=== PATIENT | female | born 1960 | race Caucasian/White ===

== ENCOUNTER → 2024-06-05 08:29 | Outpatient (REF) | payer BC, SELFPAY | LOC: HWRAD 08:29 | PROVIDERS: ATTENDING PHYSICIAN Obstetrics & Gynecology Gynecology; FAMILY PHYSICIAN Internal Medicine | DX: M85.89 Other specified disorders of bone density and structure, multiple sites (principal); Z12.31 Encounter for screening mammogram for malignant neoplasm of breast | CPT/HCPCS: 77063; 77067; 77080 ==

== ENCOUNTER 2024-10-26 22:18 | Emergency (ER) | payer BC, SELFPAY ==
[2024-10-26 22:20] VITALS: BP 166/87
--- NOTE | 2024-10-26 23:54 | ED.GENMED ---
History of Present Illness
<Quentin Thompson MD, Resident - Last Filed: 10/27/24 00:02>
General
Chief Complaint: Skin Surface Trauma
Source: patient
Exam Limitations: none
Time Seen by Provider: 10/26/24 23:39
History of Present Illness
History of Present Illness:
This is a 63-year-old female with history of hypertension; controlled, presenting in the emergency department with complaints of laceration to right forearm that happened around 11 AM. She reports she hit her arm on something in the garage. She
noticed some bleeding which stopped after few minutes however she still wanted to get it checked and decided to visit the emergency department. Denies any fevers or chills, denies any obvious swelling.
Past History
<Quentin Thompson MD, Resident - Last Filed: 10/27/24 00:02>
Past History
ED Past Medical History: Asthma, HTN and Other (History of hemachromatosis, anxiety, depression, neck and back pain with tingling and numbness of extremities, arthritis)
ED Past Surgical History: Other (History of back surgery)
Social History
Tobacco: Non-smoker
Alcohol: None
Drug: None
Personal:
Living: with family
Employment: Employed
Review of Systems
<Quentin Thompson MD, Resident - Last Filed: 10/27/24 00:02>
Review of Systems
Allergies reviewed?: Yes
All Other Systems: ROS reviewed and negative except as documented in HPI and ROS
Phy Exam
<Quentin Thompson MD, Resident - Last Filed: 10/27/24 00:02>
General Physical Exam
General Presentation: well appearing and no apparent distress
General age: appears stated age
General Skin: warm
General Habitus: normal
General Mental: alert
General Hydration: appears well hydrated
Cardiovascular Exam
Cardiovascular Exam: regular rate/rhythm and no murmur
Pulmonary Exam
Pulmonary Exam: lungs clear and no respiratory distress
Skin Exam
Skin Exam: other (Small abrasion with minimal redness in the right forearm. No obvious swelling. No bleeding. Nontender to touch. No changes in the bridge)
Course
<Quentin Thompson MD, Resident - Last Filed: 10/27/24 00:02>
Vital Signs
Initial and Last Documented VS:
Initial Vital Signs
Temp Pulse Resp BP Pulse Ox
98.1 F 68 18 166/87 95
10/26/24 22:20 10/26/24 22:20 10/26/24 22:20 10/26/24 22:20 10/26/24 22:20
Last Documented Vital Signs
Temp Pulse Resp BP Pulse Ox
98.1 F 68 18 166/87 95
10/26/24 22:20 10/26/24 22:20 10/26/24 22:20 10/26/24 22:20 10/26/24 23:58
<James Lo, DO - Last Filed: 10/27/24 00:07>
Vital Signs
Initial and Last Documented VS:
Initial Vital Signs
Temp Pulse Resp BP Pulse Ox
98.1 F 68 18 166/87 95
10/26/24 22:20 10/26/24 22:20 10/26/24 22:20 10/26/24 22:20 10/26/24 22:20
Last Documented Vital Signs
Temp Pulse Resp BP Pulse Ox
98.1 F 68 18 166/87 95
10/26/24 22:20 10/26/24 22:20 10/26/24 22:20 10/26/24 22:20 10/26/24 23:58
<Quentin Thompson MD, Resident - Last Filed: 10/27/24 00:02>
MDM/Problems Addressed
Differential Diagnosis Includes:
Laceration due to trauma
MDM/Problems Addressed:
Physical exam showed very superficial injury. No obvious swelling or redness. Dermabond applied. Wound care instructions reviewed with the patient. Return precautions reviewed. Shared decision was made with the patient for discharge. Patient
voices understanding.
<Quentin Thompson MD, Resident - Last Filed: 10/27/24 00:02>
*Pulse Oximetry
SaO2: 95
Oxygen Mode of Delivery: Room air
Patient hypoxic: no
*Critical Care Note
Total Time (30-74mins, 75-104mins- exclusive of procedures): Not Applicable
ED Attending Note
<Quentin Thompson MD, Resident - Last Filed: 10/27/24 00:02>
-
Portions of this chart may have been created with voice recognition software.� Occasional wrong word or��sound alike� substitutions may have occurred due to the inherent limitations of voice recognition software.
<James Lo, DO - Last Filed: 10/27/24 00:07>
ED Attending Note
Patient seen and examined by attending physician: Yes
I performed a history and physical exam of patient and discussed management with resident, I reviewed resident's note and agree with documented findings and plan of care.: Yes
ED Attending Note:
I have reviewed and agree with history and treatment plan by Quentin Thompson MD. My exam revealed superficial 1 cm laceration on right forearm. Dermabond applied. No sutures indicated. Tetanus up-to-date. Stable for discharge.
Discharge Plan
Departure
Patient Disposition: Home (Routine Discharge)
Date of Disposition: 10/26/24
Time of Disposition: 23:54
Patient with high blood pressure during this ER visit?: Yes
Condition: Good
Discharge Problem:
Laceration of skin
Instructions: Wound Care (DC), Abrasions - ED discharge instructions, BLOOD PRESSURE
Activity Restrictions/Additional Instructions:
You were seen at the [facility] emergency department today with concern of injury to right forearm. While you are in the hospital physical exam showed superficial abrasion. Dermabond was applied. Wound care instructions are attached with
this paperwork. Please return to the emergency department if she develop any fever or chills, swelling, redness or any worrisome symptoms.
Interventions
Interventions:
*Risk Screen - Suicide Last Done: 10/26/24 22:20
*General Assessment Last Done: 10/26/24 22:20
*Neglect/Abuse Screening Last Done: 10/26/24 22:20
Discharge Date and Time
Print Language: MOROCC[place]
[2024-10-27 00:14] VITALS: BP 149/83
== END 2024-10-27 00:25 | disposition home or self-care (01) ==
LOC: EMR 22:18
PROVIDERS: EMERGENCY PHYSICIAN Emergency Medicine; FAMILY PHYSICIAN Internal Medicine
DX: S51.811A Laceration without foreign body of right forearm, initial encounter (principal); W22.8XXA Striking against or struck by other objects, initial encounter; I10 Essential (primary) hypertension; J45.909 Unspecified asthma, uncomplicated; E83.119 Hemochromatosis, unspecified; F41.9 Anxiety disorder, unspecified; F32.A Depression, unspecified; M19.90 Unspecified osteoarthritis, unspecified site; Z91.013 Allergy to seafood; Z91.048 Other nonmedicinal substance allergy status
CPT/HCPCS: 99282; 12001